=== PATIENT | male | born 1980 | race Hispanic/Latino ===

== ENCOUNTER 2017-07-04 20:29 | Emergency (ER) | payer SELFPAY ==
[2017-07-04 22:00] VITALS: BP 126/88; PULSE 90; RESP 16; TEMP 98; O2SAT 100
--- NOTE | 2017-07-04 23:03 | ED PDOC ---
HPI: General Adult Time Seen by Provider: 07/04/17 22:02 Chief Complaint (Nursing): Dental Pain History Per: Patient Additional Complaint(s): Pt. states for the past 2-3 days he's had swelling to the R lower tooth. States several months ago he cracked the same tooth and now gums are swollen. Denies fever, new trauma. Past Medical History Reviewed: Historical Data, Nursing Documentation, Vital Signs Vital Signs: Last Vital Signs Temp 98.0 F 07/04/17 21:59 Pulse 90 07/04/17 21:59 Resp 16 07/04/17 21:59 BP 126/88 07/04/17 21:59 Pulse Ox 100 07/04/17 21:59 - Family History Family History: States: No Known Family Hx - Home Medications Home Medications: Ambulatory Orders Medication Instructions Recorded Clindamycin [Cleocin] 300 mg PO Q8 #9 cap 12/07/15 Clindamycin [Cleocin] 300 mg PO Q8 #21 cap 07/04/17 Naproxen [Naprosyn] 500 mg PO BID PRN #14 tab 07/04/17 - Allergies Allergies/Adverse Reactions: Allergies Allergy/AdvReac Type Severity Reaction Status Date / Time Penicillins Allergy RASH Verified 12/07/15 18:03 Review of Systems ROS Statement: Except As Marked, All Systems Reviewed And Found Negative Physical Exam - Physical Exam Appears: Positive for: Well, Non-toxic, No Acute Distress Skin: Positive for: Normal Color, Warm. Negative for: Rash ENT: Positive for: Other (R mandibular molar gingival swelling with purulent discharge noted) - ECG O2 Sat by Pulse Oximetry: 100 - Progress ED Course And Treament: Toradol 30mg IM ordered. Disposition - Clinical Impression Clinical Impression: Dental abscess - Patient ED Disposition Is Patient to be Admitted: No - Disposition Referrals: [facility] [Outside] [facility] [Outside] Disposition: Routine/Home Disposition Time: 23:03 Condition: STABLE Additional Instructions: Follow up with your dentist for further evaluation. Prescriptions: Clindamycin [Cleocin] 300 mg PO Q8 #21 cap Naproxen [Naprosyn] 500 mg PO BID PRN #14 tab PRN Reason: Pain Instructions: Dental Abscess (ED) Forms: [facility] ([place]), [facility] ED School/Work Excuse Print Language: IRANIAN
== END 2017-07-04 23:34 | disposition home or self-care (01) ==
LOC: H.ER 20:29
DX: K04.7 Periapical abscess without sinus (principal); Z88.0 Allergy status to penicillin
CPT/HCPCS: 96372; 99281; J1885